=== PATIENT | male | born 1980 | race Native Hawaiian/Other Pacific Islander ===

== ENCOUNTER 2020-02-13 00:51 | Emergency (ER) | payer OTHER ==
[~2020-02-13] VITALS: Ht 180.3 cm; Wt 115.7 kg
[2020-02-13 02:23] LABS: PLATELET COUNT 82 K/uL (142-355)
[2020-02-13 02:29] LABS: POTASSIUM 3.5 mmol/L (3.6-5.2)
[2020-02-13 03:45] VITALS: BP 117/88; TEMP 98.9
== END 2020-02-13 03:45 | disposition home or self-care (01) ==
LOC: ED 00:51
PROVIDERS: Emergency Medicine
DX: L03.116 Cellulitis of left lower limb (principal)
CPT/HCPCS: 36415; 80053; 83605; 85027; 87040; 96360; 99284; J0696

== ENCOUNTER 2021-05-27 14:03 | Emergency (ER) | payer OTHER ==
[~2021-05-27] VITALS: Ht 180.3 cm; Wt 133.8 kg
[2021-05-27 14:44] LABS: PLATELET COUNT 189 K/uL (142-355)
[2021-05-27 15:04] LABS: POTASSIUM 3.4 mmol/L (3.6-5.2)
[2021-05-27 17:42] VITALS: BP 115/69; TEMP 98.6
== END 2021-05-27 17:42 | disposition home or self-care (01) ==
LOC: ED 14:03
PROVIDERS: Emergency Medicine
DX: J06.9 Acute upper respiratory infection, unspecified (principal); E87.6 Hypokalemia; I89.0 Lymphedema, not elsewhere classified; R79.89 Other specified abnormal findings of blood chemistry; I31.1 Chronic constrictive pericarditis; Z20.822 Contact with and (suspected) exposure to COVID-19; F17.210 Nicotine dependence, cigarettes, uncomplicated
CPT/HCPCS: 36415; 80053; 82150; 83690; 83880; 84484; 85027; 87635; 93005; 96360; 96365; 96366; 99284; J0696; U0003

== ENCOUNTER 2022-03-08 09:42 | Emergency (ER) | payer BC ==
[~2022-03-08] VITALS: Ht 180.3 cm; Wt 133.8 kg
[2022-03-08 09:47] VITALS: TEMP 97.4
[2022-03-08 10:41] LABS: PLATELET COUNT 253 K/uL (142-355)
[2022-03-08 10:47] LABS: POTASSIUM 4.4 mmol/L (3.6-5.2)
[2022-03-08 11:00] LABS: PARTIAL THROMBOPLASTIN TIME 24.6 SECONDS (24.5-33.6)
[2022-03-08 12:04] VITALS: BP 111/59
== END 2022-03-08 13:20 | disposition short-term general hospital (02) ==
LOC: ED 09:42
PROVIDERS: Emergency Medicine
DX: R60.0 Localized edema (principal); I31.1 Chronic constrictive pericarditis; D64.89 Other specified anemias; K74.69 Other cirrhosis of liver; Z11.52 Encounter for screening for COVID-19
CPT/HCPCS: 36415; 80053; 82550; 83880; 84484; 85027; 85610; 85730; 87635; 93005; 96374; 96375; 99284; J1170; J2175; J2405; U0003